=== PATIENT | male | born 1975 | race Caucasian/White ===

== ENCOUNTER 2019-02-04 08:53 | Emergency (ER) | payer OTHER ==
[2019-02-04 09:31] VITALS: O2SAT 98
--- NOTE | 2019-02-04 09:34 | ED.PDOC ---
History of Present Illness - General Chief Complaint: Abdominal Pain Stated Complaint: Pt complains of RUQ abdominal pain x 5 days Time Seen by Provider: 02/04/19 09:26 Exam Limitations: no limitations - History of Present Illness Initial Comments: Negro Joy 44 y/o male stated that he had on and off sharp right side abdominal pain for the last one week then followed by non bloody diarrhea for the last 5 days almost 3-5 x a day no N/V.He wasseen initially at Urgent care clinic in [place], [place] work up but no acute findings note and was told that he might have gall stone but no ABD CT or Sono done except for FPA.Patient also stated that he had been to [facility] for 2 weeks. Abdominal Pain Onset Location: LUQ, RLQ Pain Radiation: no radiation Quality: moderate Timing/Duration: 1 week, intermittent Improving Factors: nothing Worsening Factors: eating Associated Symptoms: denies symptoms Review of Systems - Review of Systems Constitutional: States: no symptoms reported EENTM: States: no symptoms reported Respiratory: States: no symptoms reported Cardiology: States: no symptoms reported Gastrointestinal/Abdominal: States: see HPI Genitourinary: States: no symptoms reported Musculoskeletal: States: no symptoms reported Skin: States: no symptoms reported All other Systems: Reviewed and Negative, No Change from Baseline Past Medical History (General) - Patient Medical History Hx Stroke: No Hx of COPD: No Hx Hypertension: No Hx Diabetes: No Surgical History: no surgical history - Vaccination History Hx Tetanus, Diphtheria Vaccination: Yes Hx Influenza Vaccination: No Hx Pneumococcal Vaccination: No Immunizations Up to Date: No - Social History Hx Tobacco Use: Yes Hx Alcohol Use: Yes Hx Substance Use: No Hx Substance Use Treatment: No Hx Depression: No - Female History Patient is a Female of Child Bearing Age (10 -59 yrs old): No Family Medical History - Family History Mother Family History: Unknown Living Status: Unknown Hx Family Cancer: Yes - dad Hx Family;Other: MOM-brain aneurysm Physical Exam - Physical Exam General Appearance: Alert, Comfortable, No apparent distress Eyes, Ears, Nose, Throat Exam: normal ENT inspection, pharynx normal Neck: non-tender, full range of motion, supple, normal inspection Respiratory: chest non-tender, lungs clear Cardiovascular/Chest: normal peripheral pulses, regular rate, rhythm, no murmur Peripheral Pulses: No deficit Gastrointestinal/Abdominal: non tender, soft, no organomegaly Back Exam: no CVA tenderness, no vertebral tenderness Neurologic: alert, oriented x 3 Skin Exam: normal color, warm/dry Lymphatic: no adenopathy Progress - Progress Progress: 02/04/19 10:35 Vital Signs - 8 hr 02/04/19 09:16 Temperature 98.7 F Pulse Rate [ 100 H Right Radial] Respiratory 18 Rate Blood Pressure 142/98 [Left Arm] O2 Sat by Pulse 98 Oximetry - Results/Orders Results/Orders: 02/04/19 09:36 CLOSTRIDIUM DIFFICILE AG/TOXIN Urgent Laboratory Results - last 24 hr 02/04/19 09:44 WBC 12.1 H RBC 5.36 Hgb 17.5 Hct 51.4 MCV 95.9 H MCH 32.6 H MCHC 34.0 RDW 13.2 Plt Count 222 MPV 6.8 L Absolute Neuts (auto) 10.10 H Absolute Lymphs (auto) 1.00 Absolute Monos (auto) 0.90 H Absolute Eos (auto) 0.10 Absolute Basos (auto) 0.00 Neutrophils % 83.4 H Lymphocytes % 8.0 L Monocytes % 7.5 Eosinophils % 0.8 L Basophils % 0.3 PT 9.5 INR 0.95 PTT (SP) 22.4 Sodium 133 L Potassium 4.2 Chloride 103 Carbon Dioxide 20 L Anion Gap 14.2 BUN 17 Creatinine 0.91 BUN/Creatinine Ratio 18.7 Random Glucose 104 Serum Osmolality 268.2 L Calcium 9.2 Magnesium 2.1 Total Bilirubin 0.9 Direct Bilirubin 0.2 Indirect Bilirubin 0.7 AST 39 ALT 51 Alkaline Phosphatase 54 Creatine Kinase 152 CK-MB (CK-2) 4.9 H* CK-MB (CK-2) % 3.22 Troponin I < 0.02 Serum Total Protein 8.0 Albumin 4.8 Lipase 32 Discuss alltest result with patient Stating going back to [facility] and he will follow up with his Md;declined to have stool test done after telling him it was a send out and wiil take 3 days to get results - EKG/XRAY/CT CT Ordered: Yes - ABD/P-enteritis Departure - Departure Clinical Impression: Enteritis Abdominal pain Qualifiers: Abdominal location: right upper quadrant Qualified Code(s): R10.11 - Right upper quadrant pain Time of Disposition: 10:56 Disposition: Discharge to Home or Self Care Condition: Fair Departure Forms: ED Discharge - Pt. Copy, Patient Portal Self Enrollment Instructions: DI for Abdominal Pain-Adult, Diarrhea in Adolescents and Adults, Diarrhea and Traveler's Diarrhea, Adult (DC) Diet: other Activity: ambulate only with walker - grasy spicy foods Prescriptions: Promethazine W/Codeine Syr [Phenergan With Codeine Syrup] 10 ml PO Q8HR #120 ud Ciprofloxacin [Cipro] 500 mg PO BID 7 Days #14 tab metroNIDAZOLE [Flagyl] 500 mg PO Q8H 7 Days #21 tab Home Medications: Ambulatory Orders Ciprofloxacin [Cipro] 500 mg PO BID 7 Days #14 tab 02/04/19 Ibuprofen 200 mg PO PRN 02/04/19 Promethazine W/Codeine Syr [Phenergan With Codeine Syrup] 10 ml PO Q8HR #120 ud 02/04/19 metroNIDAZOLE [Flagyl] 500 mg PO Q8H 7 Days #21 tab 02/04/19 Additional Instructions: Need to get recheck by your primary Md 06 Feb 2019
[2019-02-04] MEDS ORDERED: LACTATED RINGERS 1,000 ML IVS ONE (09:35)
[2019-02-04] MEDS ORDERED: DICYCLOMINE HCL INJ 20 MG/2 ML AMP IM ONE (09:35)
--- NOTE | 2019-02-04 10:11 | CT ---
EXAM DESCRIPTION: Abdoment/Pelvis w/o Contrast CLINICAL HISTORY: abdominal pain COMPARISON: None. TECHNIQUE: Noncontrast transaxial CT images of the abdomen and pelvis are obtained. This exam was performed according to our departmental dose-optimization program, which includes automated exposure control, adjustment of the mA and/or kV according to patient size and/or use of iterative reconstruction technique . FINDINGS: Visualized lung bases show no acute findings. The liver is enlarged measuring 18.7 cm. Mild heterogeneous decreased attenuation of the liver is seen. Given the limitations of a noncontrast exam the spleen, pancreas, contracted gallbladder, and abdominal vasculature is unremarkable. Mild calcific atherosclerotic disease of the aorta is seen. Kidneys show no significant nephrolithiasis. No ureteral calcification or obstruction is seen. Urinary bladder is poorly distended and unremarkable. Prostate is unremarkable. The appendix is air-filled and normal. Stomach is unremarkable. No small bowel obstruction. Mild bowel wall thickening and fat stranding in the adjacent mesentery the right lower quadrant is seen. No pneumatosis coli.. Mild scattered diverticuli of the descending to sigmoid colon are seen without associated inflammatory changes or fluid collections. No pathologic lymphadenopathy. No free intraperitoneal air. No abnormal fluid collections. IMPRESSION: Findings suggest nonspecific enteritis in the small bowel the right lower quadrant of the abdomen. No definite bowel obstruction. No CT evidence of acute appendicitis. No nephrolithiasis. Mild colon diverticulosis without CT evidence of diverticulitis. Mild hepatomegaly. Electronically signed by: Salazar Roach MD 02/04/2019 10:08 AM CDT
[2019-02-04 11:19] VITALS: BP 154/97; TEMP 98
== END 2019-02-04 11:20 | disposition home or self-care (01) ==
LOC: ER 08:53
DX: K52.9 Noninfective gastroenteritis and colitis, unspecified (principal); Z87.891 Personal history of nicotine dependence
CPT/HCPCS: 36415; 74176; 80048; 80076; 82550; 82553; 83690; 84484; 85025; 85610; 85730; J0500; J7120